=== PATIENT | female | born 1955 | race Caucasian/White ===

== ENCOUNTER 2024-05-18 12:42 | Emergency (ER) | payer OTHER, MEDICARE, SELFPAY ==
--- NOTE | ~2024-05-18 | XR_ITS ---
EXAMINATION: XR wrist LT min 3V DATE: 05/18/2024 13:27 INDICATION: Left wrist pain post fall TECHNIQUE: Posteroanterior, oblique and lateral views of the left wrist were obtained. COMPARISON: none FINDINGS: Alignment is normal. No fracture. 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 Periphera lly calcified heterotopic ossicle near the tip of the ulnar styloid process likely either degenerativ e loose osteochondral body or heterotopic ossicle related to old trauma. IMPRESSION: 1. No acute osseous abnormality. Reviewed, dictated and finalized at location A.
--- NOTE | ~2024-05-18 | XR_ITS ---
EXAMINATION: XR elbow LT min 3V DATE: 05/18/2024 13:27 INDICATION: Left elbow pain post fall TECHNIQUE: Anteroposterior, two oblique and lateral views of the left elbow were obtained. COMPARISON: None. FINDINGS: Minimal depression of an intra-articular fracture extending across the left radial head with <[address] ep-off and incongruity at the articular surface. The fracture fragment comprises approximately 40% of the articular surface area of the radial head. No other fractures identified. Small enthesophytes pr oximal tip of the olecranon and at the medial epicondylar origin of the common flexor tendon wad. Bhavna nt spaces are preserved. Moderate-sized left elbow joint effusion with displacement of the anterior b ut not the posterior fat pad. Soft tissues are unremarkable. IMPRESSION: 1. Negligible depression of an intra-articular fracture of the left radial head. Reviewed, dictated and finalized at location A. IMPRESSION: 1. Negligible depression of an intra-articular fracture of the left radial head .
[2024-05-18 12:46] VITALS: BP 179/83; PULSE 93; RESP 20; TEMP 36.4; O2SAT 97
--- NOTE | 2024-05-18 12:49 | ED.FALL ---
HPI - Fall General Chief Complaint: Fall Stated Complaint: fall injury Time Seen by Provider: 05/18/24 12:49 Source: patient Mode of arrival: ambulatory Limitations: no limitations History of Present Illness HPI Narrative: 68-year-old female with dyslipidemia lost her balance and fell. no loss of consciousness. No head injury. No ENT bleeding. No back or spine pain. She presents with -- abrasions over both hands and left knee. -- left wrist/ left thenar eminence is painful with decreased range of motion. Last tetanus immunization more than 5 years ago. complaint: fall Onset (ago): hour(s) ( 1 hour ago) Fall from: standing Fall witnessed: yes, by bystander Place fall occurred: street Loss of consciousness: none Prolonged down time: no Symptoms prior to fall: none Context: tripped/slipped Location of injury: other ( knees and hand) Location of injury - extremities: Left: knee and Bilateral: hand Severity: moderate Quality: burning Associated symptoms (after fall): denies Related Data Allergies Allergy/AdvReac Type Severity Reaction Status Date / Time No Known Allergies Allergy Verified 05/18/24 13:06 Review of Systems Review of Systems: All systems reviewed & are unremarkable except as noted in HPI and below PMFSH Past Medical History Medical History (Updated 05/18/24 @ 14:10 by Adelso Elaine MD) Dyslipidemia Exam Const: General: healthy appearing and no acute distress Nutritional Appearance: well nourished Orientation/consciousness: patient oriented x3 Limitations: no limitations HENMT: Head: normal to inspection Ears: external ears normal Face/Nose/Sinus: Normal external nose present Face and sinus: normal facial exam Mouth: Yes Normal oral and palatal mucosa present Teeth and gingiva: dentition normal Throat: posterior oropharynx normal Eyes: Conjunctivae: conjunctivae normal Pupils: Equal, round and reactive pupils present EOM: EOMs intact bilaterally Direct Ophthalmoscopy: no photophobia Neck: Neck: normal visual inspection, no lymphadenopathy and no meningeal signs Chest: Chest palpation & inspection: normal inspection of the chest Resp: Effort & Inspection: normal respiratory effort Auscultation: clear to auscultation bilaterally Cardio: Rate: regular rate Rhythm: regular rhythm GI: Auscultation: normal bowel sounds Other: no tenderness/ rigidity / rebound. : General: Yes no CVA tenderness Back/Spine/Pelvis: Back: no CVA tenderness Skin: General skin exam: normal color Other: Abrasions over bilateral thenar eminence and left knee Neuro: General: patient oriented x3, moves all extremities, no meningeal signs, no focal motor deficits and CN's II-XI intact bilaterally Extrem: General: normal to inspection, no clubbing, cyanosis or edema and no pedal edema Other: left thenar eminence and wrist-- abrasions with tenderness on palpation. Decreased range of motion of the wrist. Psych: Mental Status: mental status grossly normal Affect: normal affect Attitude: cooperative Course Course Emergency Course: Accidental fall multiple abrasions left wrist sprain-- no bony injury noted left elbow pain-- x-ray revealed radial head fracture Vital Signs Vital signs: Vital Signs Temperature 36.4 C 05/18/24 12:46 Pulse Rate 93 05/18/24 12:46 Respiratory Rate 20 05/18/24 12:46 Blood Pressure 179/83 H 05/18/24 12:46 Pulse Oximetry 97 05/18/24 12:46 Oxygen Delivery Room Air 05/18/24 12:46 Temperature 36.4 C 05/18/24 12:46 Pulse Rate 93 05/18/24 12:46 Respiratory Rate 20 05/18/24 12:46 Blood Pressure 179/83 H 05/18/24 12:46 Pulse Oximetry 97 05/18/24 12:46 Oxygen Delivery Room Air 05/18/24 12:46 MDM - Fall MDM Narrative Medical decision making narrative: accidental fall multiple abrasions left radial head fracture left wrist pain Differential Diagnosis Differential diagnosis: Likely
[2024-05-18] MEDS: TETANUS,DIPHTHERIA,AC PERTUSSIS ADULT 0.5 ML (ADACEL) IM (13:10)
[2024-05-18] MEDS: NEOMYCIN/POLYMYXIN/BACITRACIN OINTMENT 15 GM TUBE 3 APPLIC TOPICAL (13:29)
[2024-05-18] MEDS: KETOROLAC 30 MG/ML VIAL (*BKC) IM (14:12)
[2024-05-18 14:14] VITALS: BP 172/88; PULSE 74; RESP 20; TEMP 36.9; O2SAT 97
== END 2024-05-18 14:46 | disposition home or self-care (01) ==
PROVIDERS: Emergency Provider Internal Medicine Critical Care Medicine; PCP Physician Assistant
DX: M25.532 Pain in left wrist (principal); S52.125A Nondisplaced fracture of head of left radius, initial encounter for closed fracture; E78.5 Hyperlipidemia, unspecified; Z23 Encounter for immunization; W01.0XXA Fall on same level from slipping, tripping and stumbling without subsequent striking against object, initial encounter; Y92.410 Unspecified street and highway as the place of occurrence of the external cause
CPT/HCPCS: 73080; 73110; 90471; 90715; 96372; 99284; A4565; J1885

== ENCOUNTER 2024-05-23 15:24 | Outpatient (CLI) | payer OTHER, SELFPAY ==
--- NOTE | ~2024-05-23 | XR_ITS ---
XR knee LT 3V Ordering provider: Andrew Otoole, PA History: . PAIN IN THE L KNEE . Comparison: None. FINDINGS: BONES: No acute fracture or dislocation. JOINT SPACES: Normal. SOFT TISSUES: Normal. IMPRESSION: No acute osseous abnormality left knee. Reviewed, dictated and finalized at location A.
== END 2024-05-23 15:25 | disposition home or self-care (01) ==
LOC: CHSIMG 15:29
PROVIDERS: PCP Physician Assistant; Visit Provider Physician Assistant
DX: M25.562 Pain in left knee (principal)
CPT/HCPCS: 73562

== ENCOUNTER 2024-06-23 13:57 | Outpatient (CLI) | payer MEDICARE, SELFPAY ==
--- NOTE | ~2024-06-23 | DEXA_ITS ---
Bone Density Report Name: DONNY CHAUDHARI Age: 68 Sex: Female Ethnicity: White Date of : 1955 Indication: postmenopausal; screening for osteoporosis; Referring Provider: UNKNOWN, UNKNOWN Study: Bone densitometry was performed. Exam Date: June 23, 2024 Accession number: [id number] Bone Density: Region BMD T-score Z-score Classification AP Spine(L1-L4) 1.139 0.8 2.8 Normal Femoral Neck (Left) 0.833 -0.1 1.5 Normal Total Hip (Left) 1.032 0.7 2.1 Normal Femoral Neck (Right) 0.833 -0.1 1.5 Normal Total Hip (Right) 1.033 0.7 2.1 Normal Femoral Neck Mean 0.833 -0.1 1.5 Normal Total Hip Mean 1.032 0.7 2.1 Normal World Health Organization criteria for BMD impression classify patients as: Normal (T-score at or above -1.0), Osteopenia (T-score between -1.0 and -2.5), or Osteoporosis (T-score at or below -2.5). 10-year Fracture Risk: FRAX not reported because: All T-scores for Spine Total, Hip Total, Femoral Neck at or above -1.0 Clinical Information Provided by Patient: Patient maximum height was 64. Menopause Age: 51 No regular weight bearing exercise Does not regularly consume dairy products Onset of menses at age 14 Number of children 2 Impression: The patient has normal bone mass. Discussion: BONE DENSITY IS ABOVE THE MINIMUM DESIRABLE LEVEL AT ALL SKELETAL SITES TESTED. This patient?s bone mineral density is above the minimum desirable level (T-score -1.0 or better) at all sites measured. The patient should follow a healthful lifestyle (good nutrition with adequate calcium and vitamin D, and appropriate weight-bearing exercise). Follow-Up: Consider repeating this study in 5 years or sooner if there is some new clinical indication. Reported by: Dr. Meet De Anda on 06/23/2024 2:48:00 PM. Reviewed, dictated and finalized at location A. [facility]
--- NOTE | ~2024-06-23 | MM_ITS ---
EXAMINATION: MM screening connie BI w dulce HISTORY: Screening TECHNIQUE: Craniocaudal and mediolateral oblique 3-D tomosynthesis images were obtained and synthetic 2-D images were generated. CAD analysis was submitted and interpreted. COMPARISON: No prior mammogram is available for comparison at this institution. BREAST PARENCHYMAL COMPOSITION: Not Dense: The breasts are almost entirely fatty. FINDINGS: In the left breast there is a 5 mm hyperdense mass in the lower inner quadrant, posterior t hird. No mammographic evidence for malignancy in the right breast. IMPRESSION: 1. Left breast mass lower inner quadrant posteriorly. 2. Additional mammographic views and possible breast ultrasound are recommended. BI-RADS Category 0: Incomplete: Needs additional imaging evaluation. Reviewed, dictated and finalized at location B. IMPRESSION: 1. Left breast mass lower inner quadrant posteriorly. 2. Additional mammographic views and possible breast ultrasound are recommended . BI-RADS Category 0: Incomplete: Needs additional imaging evaluation.
== END 2024-06-23 13:58 | disposition home or self-care (01) ==
LOC: CHSIMG 13:59
PROVIDERS: PCP Physician Assistant
DX: Z12.31 Encounter for screening mammogram for malignant neoplasm of breast (principal); Z78.0 Asymptomatic menopausal state; R92.8 Other abnormal and inconclusive findings on diagnostic imaging of breast
CPT/HCPCS: 77063; 77067; 77080

== ENCOUNTER 2024-07-11 08:30 | Outpatient (CLI) | payer MEDICARE, SELFPAY ==
--- NOTE | ~2024-07-11 | MMUS_ITS ---
EXAMINATION: MM diagnostic connie LT w dulce, US breast LT limited HISTORY: Left breast mass TECHNIQUE: Additional 3-D tomosynthesis images of the left breast were performed and synthetic 2-D im ages were generated. CAD analysis was submitted and interpreted. High resolution limited left breast ultrasound was performed. COMPARISON: 06/23/2024 BREAST PARENCHYMAL COMPOSITION:Not Dense. The breasts are almost entirely fatty FINDINGS: MAMMOGRAPHIC FINDINGS: Spot compression views confirm a persistent 5 mm mass at the lower, inner right breast. ULTRASOUND: At the 7:00 position left breast, 5 cm from nipple, there is a 5 mm round hypoechoic mass, suspected to be solid, though cyst not excluded. IMPRESSION: New 5 mm suspected solid mass at the 7:00 position left breast, 5 cm from the nipple. Given a new sm all solid mass, ultrasound-guided biopsy is recommended to establish histologic diagnosis. BI-RADS category 4, suspicious findings. Reviewed, dictated and finalized at location . IMPRESSION: New 5 mm suspected solid mass at the 7:00 position left breast, 5 cm from the nipple. Given a new small solid mass, ultrasound-guided biopsy is recommended t o establish histologic diagnosis. BI-RADS category 4, suspicious findings.
== END 2024-07-11 08:31 | disposition home or self-care (01) ==
LOC: CHSIMG 08:34
PROVIDERS: PCP Physician Assistant
DX: N63.24 Unspecified lump in the left breast, lower inner quadrant (principal); R92.8 Other abnormal and inconclusive findings on diagnostic imaging of breast
CPT/HCPCS: 76642; 77061; 77065; G0279

== ENCOUNTER 2025-07-11 12:47 | Outpatient (CLI) | payer MEDICARE, SELFPAY ==
--- OUTSIDE RECORDS SUMMARY | 2018-05-17 04:40 | XMS_ITS | Continuity of Care Document ---
Author Organization [facility] Address [address] [place] [address] Phone Care Team Providers Care [employer] Name Role Phone Colin Shearer MD Unavailable Unavailable Allergies, Adverse Reactions, Alerts Substance Reaction Status Criticality No Known Allergies Active No Inform ation Medications Medication Instructions Dosage Effective Dates (start - stop) Status Comments No Drug Therapy Prescribed Procedures Procedure Date OFFICE/OUTPATIENT VISIT, [facility] OFFICE/OUTPATIENT VISIT, [facility] Advance Directives Directive Yes / No Effective Date File Name No Information Encounters Encounter Description Practice Location Reason(s) For Visit Diagnoses Date Provider Providers Copied on Encounter OFFICE/OUTPATI ENT VISIT, [facility], [facility] [address] [place] [address], [address] [place] [address], tel:[phone] Main Office Abdominal pain (chief complaint) Right upper quadrant pain [facility]. [address] [place] [address], [facility], . tel:[phone] Referring Provider: Colin Shearer, [address], [facility]. tel:[phone] OFFICE/OUTPATI ENT VISIT, [facility], [facility] [address] [place] [address], [address] [place] [address], tel:[phone] Main Office Abdominal pain (chief complaint) Right upper quadrant pain [facility]. [address] [place] [address], [facility], . tel:[phone] Referring Provider: Colin Shearer, [address], [address]. tel:[phone] Family History Family Member Type Diagnosis Age At Onset No Information Payers Payer name Insurance type Covered democrat ID Annie ritchie(s) BARBARA BL [id number] Social History Type Description Quantity Date Captured Comments Alcohol Use Details Unknown Caffeine Use Details Unknown Tobacco Use Status No Information Smoking Status No Information Sex Female Vital Signs Date / Time: Height Weight BMI Pulse Rate Blood Pressure Temperature Respiratory Rate Body Surface Area Head Circumference Head Circ. Percentile Wt./Kevan. Percentile BMI percentile Pulse Ox Inhaled Ox 8:42 AM 66.00 in 88.904 kg (196.00 lbs) 31.6 3 kg/m eter (2) 119/66 mm[Hg] Chief Complaint And Reason For Visit From encounter dated '05/17/2018 09:40'. Abdominal pain (chief complaint). Description: Onset: gradual. Severity is mild. It occurs randomly. The problem is improving. Location is RUQ. There is radiation to back. The patient describes it asdull. Context: no pattern noted. Denies aggravating factors. Denies relieving factors. Additional information: Sought tx with PCP in [place]. Referred to GI. Is here in town visiting until July. On Zantac bid with some improvement. No N&V. Arlen 5 yr ago. Eating makes pain worse. No NSAID use. Reason For Referral Reason For Referral No Information History Of Present Illness Encounter Date Complaint History Of Prese nt Illness Abdominal pain Onset: gradual. Severity is mild. It occurs randomly. The problem is improving. Location is RUQ. There is radiation to back. The patient describes it as dull. Context: no pattern noted. Denies aggravating factors. Denies relieving factors. Additional information: Sought tx with PCP in [place]. Referred to GI. Is here in town visiting until July. On Zantac bid with some improvement. No N&V. Arlen 5 yr ago. Eating makes pain worse. No NSAID use. Abdominal pain (comments) US of the abd 05/06/18 with normal CBD with no evidence of ductal dilatation. Kidney cyst noted. LFT are normal. amylase normal. Zantac bid helping. No endoscopic procedures needed at this time. She will be returning back to [place] in July. To follow up with her GI when returning home.No lower GI sx. Had colon done recently, (this year), by GI in [place]. Abdominal pain (comments) No low er GI sx. Had colon done recently, (this year), by GI in [place]. Abdominal pain Onset: gradual. Severity is mild. It occurs randomly. The problem is worse. Location is RUQ. There is radiation to back. The patient describes it as dull and sharp. Context: after meals. Denies aggravating factors. Denies relieving factors. Additional information: Sought tx with PCP in [place]. Referred to GI. Is here in town visiting until July. On Zantac bid with some improvement. No N&V. Arlen 5 yr ago. Eating makes pain worse. No NSAID Use. Functional Status Date Functional Assessmen t No Information Medications Administered Medication Instructions Dosage Effective Dates (start - stop) Status Comments No Drug Therapy Prescribed Instructions Date Instruction Additional Infor mation No Information Assessments Type Assessment Date assessment Right upper quadrant pain Mental Status Date Cognitive Assessment Orientation - [place] ed to time, place, person, situation. Patient Care Teams Name Effective Dates (start - stop) Status Members No Information
--- NOTE | ~2025-07-11 | MM_ITS ---
EXAMINATION: MM screening connie BI w dulce HISTORY: Screening TECHNIQUE: Craniocaudal and mediolateral oblique 3-D tomosynthesis images were obtained and synthetic 2-D images were generated. CAD analysis was submitted and interpreted. COMPARISON: 06/03/2024 BREAST PARENCHYMAL COMPOSITION: Not Dense: The breasts are almost entirely fatty. FINDINGS: There is no evidence of suspicious mass, calcification, or architectural distortion to suggest malignancy. IMPRESSION: 1. No mammographic evidence of malignancy. Recommend routine screening mammography in one year. BI-RADS Category 2: Benign finding(s) Reviewed, dictated and finalized at location Q. IMPRESSION: 1. No mammographic evidence of malignancy. Recommend routine screening mammogra phy in one year. BI-RADS Category 2: Benign finding(s)
--- OUTSIDE RECORDS SUMMARY | 2025-07-11 14:19 | XMS_ITS | Clinical Summary ---
Author Organization [facility] Address [address] [place] [address] Phone Care Team Providers Care Judicial Clerk Name Role Phone Jb Lennon MD Unavailable [phone] Andrew Otoole Primary Care Provider [phone] Heaven Foss MD Unavailable Allergies No known active allergies Medications ezetimibe (ZETIA) 10 MG Tablet Take 1 Tablet by mouth daily. 4 Active niacin (NIASPAN) 500 MG Tablet Controlled Release Take 500 mg by mouth daily. 4 Active Multiple Vitamin (MULTIVITAMIN PO) Take by mouth. Active [place]-3 Fatty Acids (FISH OIL PO) Take by mouth. Active Sennosides (SENNA LAX PO) Take by mouth. Active Simethicone (GAS-X PO) Take by mouth. Active naproxen (NAPROSYN) 500 MG Tablet Take 1 Tablet by mouth 2 times daily. 5 Active omeprazole (PriLOSEC) 20 MG CAPSULE DELAYED RELEASE Take 20 mg by mouth daily. Active simvastatin (ZOCOR) 20 MG Tablet Take 20 mg by mouth. Active diazePAM (VALIUM) 5 MG Tablet TAKE 1 TABLET BY MOUTH TWICE A DAY NEEDED 5 Active anastrozole (ARIMIDEX) 1 MG Tablet TAKE 1 TABLET BY MOUTH EVERY DAY 90 Tablet 1 5 Active anastrozole (ARIMIDEX) 1 MG Tablet Take 1 Tablet by mouth daily 30 Tablet 2 06/14/20 25 Discontinued Active Problems Problem Noted Date Diagnosed Date Malignant neoplasm of lower- inner quadrant of left breast in female, estrogen receptor positive 01/26/2025 Cancer Staging:Clinical:Stage IA(cT1, cN0, cM0, G2, ER+, MS+, HER2-) - Signed by Heaven Foss MD on 01/26/2025 Encounters Date Type Department Care Team Description 06/27/2025 11:00 AM CDT Office Visit [facility] [address] [address] Lynda Lema APRN, PRODUCTION QUALITY MANAGER Malignant neoplasm of lower-inner quadrant of left breast in female, estrogen receptor positive (HCC) (Primary Dx); Encounter for screening mammogram for malignant neoplasm of breast; Use of aromatase inhibitors 06/27/2025 10:45 AM CDT Lab [facility] [address] [address] [facility] Malignant neoplasm of lower-inner quadrant of left breast in female, estrogen receptor positive (HCC) 06/27/2025 Travel 06/13/2025 Refill [facility] [address] [address] Heaven Foss MD Medication Refill 05/19/2025 Refill [facility] [address] [address] Heaven Foss MD Medication Refill 05/17/2025 11:30 AM CDT Office Visit [facility] [address] [address] Heaven Foss MD Malignant neoplasm of lower-inner quadrant of left breast in female, estrogen receptor positive (HCC) (Primary Dx) 05/17/2025 Travel 04/25/2025 11:00 AM CDT Office Visit [facility] [address] [address] Tonya Andrews, FULLER BRUSH WORKER, PRODUCTION QUALITY MANAGER Malignant neoplasm of lower-inner quadrant of left breast in female, estrogen receptor positive (HCC) (Primary Dx) 04/25/2025 Travel 04/11/2025 11:00 AM CDT Office Visit [facility] [address] [phone] Heaven Foss MD Malignant neoplasm of lower-inner quadrant of left breast in female, estrogen receptor positive (HCC) (Primary Dx) 04/11/2025 Travel from Last 3 Months Immunizations Immunization Administration Dates Next Due Influenza, High-dose, Quadrivalent 08/10/2023 Influenza, Injectable, Quadrivalent 08/08/2021,1 TDAP Vaccine 05/18/2024 Family History Medical History Relation Name Comments Colon Cancer Brother Relation Name Status Comments Brother Alive Social History Tobacco Use Types Packs/Day Years Used Date Smoking Tobacco: Former Cigarettes Smokeless Tobacco: Never Tobacco Cessation:Counseling Given: Not Answered Alcohol Use Standard Drinks/Week Comments Not Currently 0 (1 standard drink = 0.6 oz pur e alcohol) Sexually Active Control Partners Comments Not Currently Comments No Sex and Gender Information Value Date Recorded Sex Assigned at Not on file Legal Sex Female 3:13 PM CDT Gender Identity Not on file Sexual Orientation Not on file Last Filed Vital Signs Vital Sign Reading Time Taken Comments Blood Pressure 122/74 06/27/2025 10:38 AM CDT Pulse 78 06/27/2025 10:38 AM CDT Temperature 36.6 C (97.8 F) 06/27/2025 10:38 AM CDT Respiratory Rate 18 06/27/2025 10:3 8 AM CDT Oxygen Saturation 98% 06/27/2025 10: 38 AM CDT Inhaled Oxygen Concentration - - Weight 93.3 kg (205 lb 11.2 oz) 025 10:38 AM CDT Height 162.6 cm (5' 4) 06/27/2025 10:3 8 AM CDT Body Mass Index 35.31 06/27/2025 10:38 AM CDT Plan of Treatment Upcoming Encounters Date Type Department Care Team (Late st Contact Info) Description 09/26/2025 10:05 AM HIM TECH Lab [facility] [address] [phone] Lab, [facility] 09/26/2025 10:15 AM HIM TECH Office Visit [facility] [address] [phone] Heaven Foss MD [address] [place] [address] [phone] Health Maintenance Due Date Last Done Comments DEXA Bone Density 1955 Hepatitis C Virus (HCV) Screening 1955 Pneumococcal Immunization (50+ years) (1 of 2 - PCV) 1975 Zoster Immunization (1 of 2) 1975 Cologuard 2001 Immunochemical Fecal Occult Blood 2001 Respiratory Syncytial Virus (RSV) Immunization (Adult) (1 - Risk 60-74 years 1-dose series) 2016 SARS-COV-2 Immunization (3 - Moderna risk series) 03/22/2021 02/22/2021, 01/25/2021 Influenza Immunization (#1) 2025 100 12/2023, 08/10/2023, 08/08/2021, Additional history exists Mammogram 01/06/2026 01/06/2025, 05/2 10/2021, 01/28/2021, Additional history exists Colonoscopy 10/25/2028 10/25/2018 Colorectal Cancer Screening 10/25/2028 Td Immunization Every 10 Years (Adults With 1 Tdap) 05/18/2034 05/18/2024 TdaP Immunization Discontinued 05/18/2024 Hepatitis B Immunization Aged Out No longer eligible based on patient's age to complete this topic Human Papillomavirus (HPV) Immunization Aged Out No longer eligible based on patient's age to complete this topic Meningococcal Immunization (ACWY) Aged Out No longer eligible based on patient's age to complete this topic Rotavirus Immunization Aged Out No lo nger eligible based on patient's age to complete this topic Procedures Procedure Name Priority Date/Time Associated Diagnosis Comments COMPLETE BLOOD COUNT (CBC) WITH DIFF Routine 06/27/2025 10:26 AM CDT Malignant neoplasm of lower-inner quadrant of left breast in female, estrogen receptor positive (HCC) CMP (COMPREHENSIVE METABOLIC PANEL) Routine 06/27/2025 10:26 AM CDT Malignant neoplasm of lower-inner quadrant of left breast in female, estrogen receptor positive (HCC) from Last 3 Months Results * CMP (COMPREHENSIVE METABOLIC PANEL) (06/27/2025 10:26 AM CDT) Glucose 84 70 - 105 mg/dL [facility] Blood Urea Nitrogen 10 7 - 25 mg/dL [facility] Creatinine 0.8 0.6 - 1.2 mg/dL [facility] Sodium 138 136 - 145 mEq/L [facility] Potassium 4.3 3.5 - 5.1 mEq/L [facility] Chloride 103 98 - 107 mEq/L [facility] Bicarbonate 28 21 - 31 mEq/L [facility] Total Bilirubin 0.3 0.3 - 1.0 mg/dL [facility] Alk. Phosphatase 62 34 - 104 U/L [facility] Aspartate Aminotransferase 18 13 - 39 U/L [facility] Alanine Aminotransferase 16 7 - 52 U/L [facility] Total Protein 6.8 6.4 - 8.9 g/dL [facility] Albumin 4.3 3.5 - 5.7 g/dL [facility] Calcium 9.6 8.6 - 10.3 mg/dL [facility] Anion Gap 11.3 7.0 - 15.0 mEq/L [facility] Globulin 2.5 2.0 - 3.5 g/dL [facility] EGFR 80 >60 ml/min/1. 73m2 [facility] Comment: This eGFR is calculated using 2020 CKD-EPI Creatinine equation without race modifier based on the NKF-ASN task force recommendations Equation: rTYM=080*min(SCr/k,1)a*max(SCr/k,1)-1.200*0.9938Age*1.012 (if female), where SCr is serum creatinine, k is 0.7 for females and 0.9 for males, and a is -0.241 for females and -0.302 for males Blood 06/27/2025 10:2 6 AM CDT Narrative CANCER CAREER SERVICES MANAGER [facility] - 06/27/2025 11:13 AM CDT Release to patient->Immediate IS THE PATIENT REQUIRED TO BE FASTING FOR 8 HOURS?->No us Heaven Foss MD CHEMISTRY ORDERABLES Final Resul t CANCER CAREER SERVICES MANAGER [facility] [place] [address], * (ABNORMAL) COMPLETE BLOOD COUNT (CBC) WITH DIFF (06/27/2025 10:26 AM CDT) WBC 7.3 4.0 - 10.0 10*3/uL CANCER CAREER SERVICES MANAGER [facility] HGB 11.9 11.2 - 15.7 g/dL CANCER CAREER SERVICES MANAGER [facility] HCT 34.8 34.1 - 44.9 % CANCER CAREER SERVICES MANAGER [facility] PLT 221 163 - 369 10*3/uL [facility] MPV 7.5(L) 9.4 - 12.4 fL CANCER CAREER SERVICES MANAGER [facility] RBC 3.61(L) 3.93 - 5.22 10*6/uL CANCER CAREER SERVICES MANAGER [facility] MCV 96(H) 79 - 95 fL CANCER CAREER SERVICES MANAGER [facility] MCH 33.0(H) 25.6 - 32.2 pg CANCER CAREER SERVICES MANAGER [facility] MCHC 34.2 32.2 - 36.5 g/dL CANCER CAREER SERVICES MANAGER [facility] RDW 12.7 11.6 - 14.4 % CANCER CAREER SERVICES MANAGER [facility] Absolute Neutrophil Count 3,947 cells/uL [facility] Absolute Seg Count 3,947 1,440 - 6,600 cells/uL CANCER CAREER SERVICES MANAGER [facility] Absolute Lymph Count 2,559 760 - 4,000 cells/uL CANCER CAREER SERVICES MANAGER [facility] Absolute Bulloch Count 731 160 - 1,200 cells/uL CANCER CAREER SERVICES MANAGER [facility] Absolute Eos Count 73 0 - 300 cells/uL CANCER CAREER SERVICES MANAGER [facility] Segmented Neutrophils 54 36 - 66 % CANCER CAREER SERVICES MANAGER [facility] Lymphocytes 34 19 - 40 % [facility] C ENTER [facility] Monocytes 10 4 - 12 % [facility] WES TER [facility] Eosinophils 1 0 - 3 % [facility] Atypical Lymphs 1 0 - 2 % CANC ER CAREER SERVICES MANAGER OF [facility] WBC Estimate Normal CANCER CAREER SERVICES MANAGER [facility] Platelet Estimate Normal CANCER CAREER SERVICES MANAGER [facility] RBC Morphology Abnormal CANCE R CAREER SERVICES MANAGER OF [facility] Macrocytosis 1+ CANCER CAREER SERVICES MANAGER [facility] Blood 06/27/2025 10:2 6 AM CDT Narrative CANCER CAREER SERVICES MANAGER [facility] - 06/27/2025 12:15 PM CDT Release to patient->Immediate us Heaven Foss MD HEMATOLOGY ORDERABLES Final Resu lt CANCER CAREER SERVICES MANAGER [facility] [place] [address], from Last 3 Months Insurance MEDICARE [facility] [employer] 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 [address] [place] [id number] PCP - General Primary Care 08/22/24 Jb Lennon MD [address] [address] Consulting Physician Urology 08/18/24 Heaven Foss MD [address] [place] [id number] Consulting Physician Oncology 01/16/25
--- OUTSIDE RECORDS SUMMARY | 2025-07-11 14:19 | XMS_ITS | Clinical Summary ---
Author Organization [facility] Address [address] [place] [address] Care Team Providers Care Health Safety Specialist Name Role Phone Andrew Otoole Primary Care Provider [phone] Allergies No known active allergies Medications simvastatin (ZOCOR) 20 mg tablet Take 20 mg by mouth nightly. Active omeprazole (PriLOSEC) 20 mg capsule Take 20 mg by mouth daily. Active Active Problems Problem Noted Date Diagnosed Date Disorder of gallbladder 08/17/2013 Overview (01/30/2017): Gallbladder disease Surgical History Surgery Date Site/Laterality Comments CHOLECYSTECTOMY 10/26/2013 - 10/25/2014 Cholecystectomy OOPHORECTOMY 10/26/1984 - 10/25/1985 Right oophorectomy Medical History Medical History Date Comments Hyperlipidemia Social History Tobacco Use Types Packs/Day Years Used Date Smoking Tobacco: Former Smokeless Tobacco: Never Alcohol Use Standard Drinks/Week Comments No 0 (1 standard drink = 0.6 oz pur e alcohol) Comments No Sex and Gender Information Value Date Recorded Sex Assigned at Not on file Legal Sex Female 3:03 AM CONCAVER Gender Identity Not on file Sexual Orientation Not on file Obstetrics History Para Term AB IAB SAB Ectopic Multiple Livin g Live Births 3 2 2 Date Outcome GA Total Labor Labor/2nd/3rd Weight Sex Type Anes PTL Sandy A1 A5 Name Clin Term Term Last Filed Vital Signs Vital Sign Reading Time Taken Comments Blood Pressure 140/83 12/22/2017 1:45 PM CONCAVER Pulse 65 12/22/2017 1:45 PM CONCAVER Temperature 36.6 C (97.9 F) 12/22/2017 1:45 PM CONCAVER Respiratory Rate 18 12/22/2017 1:45 PM CONCAVER Oxygen Saturation 100% 12/22/2017 1:45 PM CONCAVER Inhaled Oxygen Concentration - - Weight 90.7 kg (200 lb) 03/15/2022 8:32 AM CDT Height 162.6 cm (5' 4) 03/15/2022 8:32 AM CDT Body Mass Index 34.33 03/15/2022 8:32 AM CDT Plan of Treatment Health Maintenance Due Date Last Done Comments Depression Screening 1955 Fall Risk Assessment 1955 Hepatitis C Screening 1955 Osteoporosis Screening-Bone Density Scan 1955 Hepatitis B Screening 1974 Pneumococcal vaccine 65+ (1 of 1 - PCV) 2006 Zoster Vaccine (1 of 2) 2006 Well Visit 65+ 2021 Breast Cancer Screening-Mammogram 06/23/2025 06/23/2024, 03/15/2022, 01/28/2021, Additional history exists Covid-19 Vaccine (3 - 2024-2 6 season) 2025 02/22/2021, 01/25/2021 Influenza Vaccine (#1) 2025 , 08/08/2021, 08/12/2019 Colon Cancer Screening-Colonoscopy 12/22/2027 12/22/2017 DTaP/Tdap/Td Vaccine (2 - Td or Tdap) 05/18/2034 05/18/2024 Colon Cancer Screening-CT Colonography Discontinued 12/22/2017 Colon Cancer Screening-DNA Stool Discontinued 12/22/19 Colon Cancer Screening-FIT Discontinued 12/22/2017 Colon Cancer Screening-Sigmoidoscopy Discontinued 12/22/2017 Procedures Procedure Name Priority Date/Time Associated Diagnosis Comments SCREENING MAMMOGRAM BILATERAL W MATT Schedule Routine, Read Routine (OP Routine) 03/15/2022 8:37 AM CDT Screening mammogram for breast cancer COLONOSCOPY 12/22/2017 12:43 PM CONCAVER from Last 3 Months or Most Recently Relevant to Health Maintenance Results * Screening Mammogram Bilateral W Matt (03/15/2022 8:37 AM CDT) Anatomical Region Laterality Modality Breast Bilateral Mammography 03/17/2022 7:36 AM CDT Impressions 03/17/2022 7:36 AM CDT There is no mammographic evidence of malignancy. A 1 year screening mammogram is recommended. BI-RADS: 2 - Benign. The patient has been or will be contacted. The patient will be entered into a reminder system with a target due date of 1 year for her next mammogram. Electronically signed by: Jose Arenas M.D. Narrative 03/17/2022 7:36 AM CDT EXAMINATION: SCREENING MAMMOGRAM BILATERAL W MATT ORDERING HEALTHCARE PROVIDER: SELF SCREENING MAMMOGRAM HISTORY: Routine screening mammography. COMPARISON: 01/28/2021, 03/15/2019, 02/04/2018 TECHNIQUE: CC and MLO views of the bilateral breasts were obtained with digital technique using breast tomosynthesis with C view. Computer aided detection was utilized. FINDINGS: DENSITY: The tissue of the bilateral breasts is almost entirely fatty. BREASTS: There are no suspicious masses, suspicious calcifications, or other suspicious findings in either breast. There has been no suspicious interval change. There is a stable benign left breast mass at 12 o'clock position at middle depth. us Self Screening Mammogram IMG MAMMO PROCEDURES Fi nal Result * COLONOSCOPY (12/22/2017 12:43 PM CONCAVER) Anatomical Region Laterality Modality Other Narrative Procedure Note Otoniel Granados MD - 12/22/2017 12:43 PM CST [facility] Patient Name: Carole Rivera Procedure Date: 12/22/2017 12:43 PM Date of : 1955 Admit Type: Outpatient Age: 62 Gender: Female Attending MD: Otoniel Granados MD Room: [facility] ENDOSCOPY CAPSULE Note Status: Finalized Patient Profile: 62 WF, screening colonscopy, no family h/o coloncancer. Procedure: Colonoscopy Indications: Screening for colorectal malignant neoplasm Referring MD: ALAYNA Mejia Providers: Otoniel Granados MD Impression: - One 4 mm polyp in the ascending colon. Resectedand retrieved. - Small hemorrhoids. Recommendation: - Await pathology results. - Repeat colonoscopy in 5 years for surveillance. Medicines: Monitored Anesthesia Care Complications: No immediate complications. Estimated Blood Loss: Estimated blood loss: none. Procedure: Pre-Anesthesia Assessment: - Prior to the procedure, a History and Physical was performed, and patient medications and allergieswere reviewed. The patient's tolerance of previous anesthesia was also reviewed. The risks and benefitsof the procedure and the sedation options and riskswere discussed with the patient. All questions were answered, and informed consent was obtained. Prior Anticoagulants: The patient has taken no previous anticoagulant or antiplatelet agents. ASA Grade Assessment: II - A patient with mild systemicdisease. After reviewing the risks and benefits, the patientwas deemed in satisfactory condition to undergo the procedure. The benefits, risks and alternatives of theprocedure and sedation were discussed and informed consent was obtained. All questions were answered. Please referto the signed informed consent document in the medical record. The scope was passed under direct vision.The Pediatric Colonoscope PCF-H190L [id number] was introduced through the anus and advanced to the the cecum, identified by appendiceal orifice andileocecal valve. The colonoscopy was performed without difficulty. The patient tolerated the procedurewell. The quality of the bowel preparation was good. Findings: The perianal and digital rectal examinations were normal. A 4 mm polyp was found in the ascending colon. The polyp was semi-sessile. The polyp was removed with a jumbo cold forceps.Resection and retrieval were complete. Otherwsie the entire rest of the colonwas unremarkable. Retroflexion in the rectum showed small hemorrhoids. Electronically signed by Otoinel Granados M.D. Otoniel Granados MD 12/22/2017 1:20:41 PM Number of Addenda: 0 Note Initiated On: 12/22/2017 12:43 PM Procedure Code(s): --- Professional --- 45022, Colonoscopy, flexible; with biopsy, single or multiple Diagnosis Code(s): --- Professional --- Z12.11, Encounter for screening for malignant neoplasm of colon D12.2, Benign neoplasm of ascending colon CPT copyright 2014 [employer]. All rights reserved. The codes documented in this report are preliminary and upon dispatcher chief oil reviewmay be revised to meet current compliance requirements. Recognized by the [employer] for promoting quality in endoscopy Otoniel Granados MD ENDOSCOPY PROCEDURES Final Result from Last 3 Months or Most Recently Relevant to Health Maintenance Insurance [place] CHO[place] MEDICARE [employer] MEDICARE MEDICARE [facility] MEDICARE SUPPLEMENT Advance Directives For more information, please contact: [phone] * Full Code (Latest Code Status on File) Date Activated Date Inactivated Comments 12/22/2017 12:20 PM 12/22/2017 4:05 PM Care Teams Health Safety Specialist Relationship Specialty Start Date End Date Andrew Otoole PA [address] [place] [address] PCP - General 08/17/13
== END 2025-07-11 12:48 | disposition home or self-care (01) ==
LOC: CHSIMG 12:47
PROVIDERS: PCP Physician Assistant; Visit Provider Nurse Practitioner Family
DX: Z12.31 Encounter for screening mammogram for malignant neoplasm of breast (principal)
CPT/HCPCS: 77063; 77067